=== PATIENT | male | born 1980 | race Caucasian/White ===

== ENCOUNTER 2021-05-19 12:26 | Outpatient (REF) | payer OTHER, SELFPAY | END 2021-05-19 12:27 | disposition home or self-care (01) | LOC: HO.HMGCLDS 12:26 | PROVIDERS: PCP Internal Medicine; Visit Provider Internal Medicine | DX: Z20.822 Contact with and (suspected) exposure to COVID-19 (principal) | CPT/HCPCS: C9803; U0003; U0005 ==

== ENCOUNTER 2021-09-25 09:13 | Outpatient (REF) | payer OTHER, SELFPAY | END 2021-09-25 09:14 | disposition home or self-care (01) | LOC: HO.HMGCLDS 09:13 | PROVIDERS: Visit Provider Internal Medicine | DX: Z20.822 Contact with and (suspected) exposure to COVID-19 (principal) | CPT/HCPCS: C9803; U0003; U0005 ==

== ENCOUNTER 2025-02-26 07:45 | Outpatient (REF) | payer OTHER, SELFPAY ==
--- NOTE | ~2025-02-26 | XR_ITS ---
EXAMINATION: XR HAND 3 OR MORE VIEWS LEFT HISTORY: M79.642 - Pain in left hand COMPARISON: There are no prior studies available for comparison. FINDINGS: Three views of the left hand are submitted. Osseous mineralization is normal. There is a minimally displaced fracture of the volar aspect of the base of the middle phalanx of the 5th finger. No additional fracture is seen. There is no dislocation. The joint spaces are preserved. There is soft tissue swelling at the fracture site. XR/XR hand LT min 3V IMPRESSION: Minimally displaced fracture of the volar aspect of the base of the middle phalanx of the 5th finger. Electronically signed by: Td Gonzalez MD 02/26/2025 12:12 PM EDT
--- OUTSIDE RECORDS SUMMARY | 2025-02-26 07:48 | XMS_ITS | Patient Health Record ---
Author Organization [facility] Address [address] [place] [address] Care Team Providers Care Compensation And Benefits Advisor Name Role Phone Raman Zaidi MD Primary Care Provider Sandy Velasquez Unavailable [phone] Reason For Referral No Information Medications Medication SIG (Take, Route, Frequency, Duration) Notes Start Date End Date Status Ranitidine HCl 150 MG 1 tablet at bedtim e Orally Once a day Active Cetirizine HCl 10 MG 1 tablet Orally Onc e a day Active Adderall XR 30 MG 1 capsule in the mor nakul Orally Once a day Not-Taking Adderall XR 15 MG (Schedule II Drug) T MARK 1 CAPSULE IN THE MORNING WITH THE 30MG XR. Oral for 30 Not-Taking Cephalexin 500 MG 1 tablet Orally Twic e a day for 7 days Active Concerta Active Atenolol 50 MG TAKE 1 TABLET BY JAGJIT TH EVERY DAY Oral for 30 Active Amphetamine-Dextroamphet ER 15 MG (Schedule II Drug) TAKE 1 CAPSULE BY MOUTH IN THE MORNING WITH THE 30MG XR. NO SUBSTITUTES Oral for 30 Not-Taking Cephalexin 500 MG TAKE ONE CAPSULE BY MOUTH 4 TIMES A DAY FOR 7 DAYS Oral for 7 Not-Taking Cephalexin 500 MG 1 tablet Orally Twic e a day for 5 days Not-Taking Rizatriptan Benzoate 10 MG 1 tablet as needed one time Orally Once a day Active Social History Tobacco Use: Social History Observation Description Date Details (start date - stop date) Never Smoker NA - NA Tobacco Use/Smoking Question Answer Notes Are you a: nonsmoker Additional Findings: Tobacco Non-User Current no n-smoker Alcohol Screen Question Answer Notes Did you have a drink contain ing alcohol in the past year? Yes How often did you have a dri nk containing alcohol in the past year? Monthly or less (1 point) Points 1 Interpretation Negative Tobacco use other than smoking: Question Answer Notes Are you an other tobacco user? No Plan Of Treatment Pending Test Test Name Order Date I&D ABSCESS- SIMPLE,SINGLE 018 Insurance Providers Payer Name Payer Address Payer Phone Subscriber Number Group Number Insured Name Patient Relationship to Insured Coverage Start Date Coverage End Date A[employer] [address] [place] [address] [id number] James Martinez Self - patient is the insured Medical (General) History Medical History History ICD Code Anxiety asthma Back,Hip,and Knee pain Broken bones Headaches High blood pressure keloids Reflux ( GERD) Warts Chicken pox Surgical History Surgery Date(Month/Year)
== END 2025-02-26 07:46 | disposition home or self-care (01) ==
LOC: HO.HOSX 07:45
DX: S62.627A Displaced fracture of middle phalanx of left little finger, initial encounter for closed fracture (principal)
CPT/HCPCS: 73130; 99202

== ENCOUNTER 2025-02-26 09:37 | Outpatient (AMB) | payer OTHER, SELFPAY ==
[2025-02-26 09:57] VITALS: BMI 23.7
--- NOTE | 2025-02-26 09:57 | MHC.OFFVIS ---
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 Soreness afterwards and bruised the following day. States pain improved however it increase after bumping it in a surface. Seen in Urgent care on 02/20/25 where xrays were taken and was given a brace. He was told he has a small finger fracture. Denies numbness or tingling. Allergies No Known Allergies Allergy (Verified 02/26/25 09:57) PFSH Surgical History (Updated 02/26/25 @ 09:59 by SHARAD Lozano) Hx of external ear surgery Social History (Updated 02/26/25 @ 10:00 by SHARAD Lozano) Patient Tobacco Use Status: Never used Tobacco Current occupational status: employed Current occupation: rt hand / teacher H/S Physical Exam Vital Signs: BMI result Body Mass Index 23.7 Office Procedures AMB Fracture Care Fracture Billing Code: Fracture Billing Code Assessment & Plan Assessment & Plan (1) Closed fracture of middle phalanx of left little finger: Code(s): S62.627A - Displaced fracture of middle phalanx of left little finger, initial encounter for closed fracture Category: Medical Plan History of Present Illness The patient is a 44-year-old male presenting with a fractured finger. He sustained the injury on the of the month while playing basketball. The exact mechanism of the fracture is unclear, but it likely involved some hyperextension during play. He reports persistent pain when using the finger or upon impact, though no pain when the hand is at rest. Initial self-care involved resting the hand and avoiding movement, which led to soreness and limited range of motion. Recent activities may have exacerbated the injury, and an x-ray revealed a nondisplaced avulsion fracture involving approximately 5-10% of the joint surface at the base of the middle phalanx of the left small finger. The patient experiences stiffness but does not report significant pain at the site of injury. Review of Systems - Musculoskeletal: Reports pain and stiffness in the left small finger. Denies pain elsewhere. - General: Denies any other symptoms or conditions discussed. Systems reviewed and are negative except as per HPI and below Physical Exam - Musculoskeletal- Examination of the left small finger shows limited range of motion. Absence of significant tenderness at the fracture site. There is some very minor swelling noted at the level of the fracture. No erythema, ecchymosis, open areas noted. Distal sensation intact, capillary refill brisk Results - Imaging: X-ray confirms an avulsion fracture of the base of the middle phalanx of the left small finger with minimal joint involvement. Procedure Plan The avulsion fracture of the left small finger's middle phalanx will be managed conservatively since the fracture is nondisplaced. The patient will discontinue using a splint and start gilbert taping to maintain stability while encouraging mobility. Light activities are permitted, but any lifting in the affected hand should be limited to objects under two to three pounds. A follow-up assessment will be conducted in two to three weeks to evaluate progress and determine the need for occupational therapy. Repeat x-rays will ensure the fracture's healing. The patient is advised against engaging in strenuous physical activity until further notice. Patient was informed and verbally consented to the use of an ambient scribe for clinic note documentation during this visit. Discussion Notes I informed the patient about the diagnosis of an avulsion fracture of the left small finger's middle phalanx, explaining its nondisplaced nature and minimal joint surface involvement. We discussed discontinuation of the splint in favor of gilbert taping to enhance mobility and prevent stiffness. I educated the patient on self-administering passive range of motion exercises to regain movement and addressed current limitations, emphasizing that no lifting over two to three pounds is advised to avoid exacerbating the fracture. The patient was advised against basketball or similar activities during recovery. We scheduled the follow-up for two to three weeks to evaluate progress and potential need for occupational therapy should restrictions persist. Follow-up x-rays will be conducted to verify appropriate healing. Patient Instructions - Use gilbert tape to stabilize the injured finger while encouraging movement. - Do light activities, but do not lift items heavier than two to three pounds with the injured hand. - Perform finger exercises to improve range of motion. - Avoid playing basketball or similar activities. - Return for a follow-up in two to three weeks for x-rays and progress evaluation. - Watch for increased pain or swelling and seek care if these occur. Orders: Orders XR hand LT min 3V Today M79.642 - Pain in left hand Coding Level of Care Code New Pt Level 3 (99324) Diagnoses Closed fracture of middle phalanx of left little finger S62.627A CPT Codes Fracture Care - Fracture Billing Code: Fracture Billing Code ([id number])
== END 2025-02-26 10:30 | disposition home or self-care (01) ==
LOC: HO.HOS 09:38
PROVIDERS: PCP Internal Medicine
DX: S62.627A Displaced fracture of middle phalanx of left little finger, initial encounter for closed fracture (principal)
CPT/HCPCS: 99203

== ENCOUNTER → 2025-02-26 09:45 | Outpatient (BNV) | payer OTHER, SELFPAY | PROVIDERS: Visit Provider Radiology Diagnostic Radiology | DX: S62.623A Displaced fracture of middle phalanx of left middle finger, initial encounter for closed fracture (principal) | CPT/HCPCS: 73130 ==

== ENCOUNTER → 2025-03-14 07:24 | Outpatient (BNV) | payer OTHER, SELFPAY | PROVIDERS: Emergency Provider Emergency Medicine; PCP Internal Medicine; Visit Provider Radiology Diagnostic Radiology | DX: S63.247A Subluxation of distal interphalangeal joint of left little finger, initial encounter (principal) | CPT/HCPCS: 73140 ==

== ENCOUNTER 2025-03-14 08:08 | Emergency (ER) | payer OTHER, SELFPAY ==
--- NOTE | ~2025-03-14 | XR_ITS ---
EXAMINATION: XR fifth digit, LEFT CLINICAL INFORMATION: INJUREY L 5FTH DIGIT COMPARISON: February 26, 2025. TECHNIQUE: PA and oblique and lateral views of the left fifth digit. PA view left hand. FINDINGS: There is overlapping of the phalanges of the second third and fourth digits on the lateral projection of the left fifth digit. No acute cortical disruption. No periosteal bone reaction. No callus formation. XR/XR finger LT min 2V IMPRESSION: No gross callus formation. No overt fracture. Electronically signed by: Koko Ayala MD 03/14/2025 08:35 AM EDT
[2025-03-14 08:10] VITALS: BP 140/89; PULSE 59; RESP 16; TEMP 36.6; O2SAT 100; BMI 23.7
--- NOTE | 2025-03-14 08:50 | PC.NURSE ---
pt registered to ED for out pt XR instead of presenting to main hospital - lwbs d/t scheduled follow up appt at ortho.
== END 2025-03-14 09:13 | disposition left against medical advice (07) ==
LOC: HO.ED 09:14
PROVIDERS: Emergency Provider Emergency Medicine; PCP Internal Medicine
DX: S69.92XA Unspecified injury of left wrist, hand and finger(s), initial encounter (principal); X58.XXXA Exposure to other specified factors, initial encounter; Y93.9 Activity, unspecified; Y92.9 Unspecified place or not applicable; Y99.9 Unspecified external cause status; Z53.21 Procedure and treatment not carried out due to patient leaving prior to being seen by health care provider
CPT/HCPCS: 73140; 99212; 99281

== ENCOUNTER 2025-03-14 08:27 | Outpatient (AMB) | payer OTHER, SELFPAY ==
--- NOTE | 2025-03-14 08:29 | MHC.OFFVIS ---
Intake Visit Reasons: OV- L 5th finger prox phalanx fx DOI 02/08/25 Intake Note: James is a 44 year old right hand dominant male who presents today for a follow up visit for his closed fracture of middle phalanx of left little finger, DOI: 02/08/25. Patient reports that he is feeling a little better. He does find it sore when he is making a fist. Allergies No Known Allergies Allergy (Verified 03/14/25 08:29) HPI HPI OV- L 5th finger prox phalanx fx DOI 02/08/25: Details: James is a 44 year old right hand dominant male who presents today for a follow up visit for his closed fracture of middle phalanx of left little finger, DOI: 02/08/25. Patient reports that he is feeling a little better. He does find it sore when he is making a fist. PFSH Surgical History (Updated 02/26/25 @ 09:59 by SHARAD Lozano) Hx of external ear surgery Social History Patient Tobacco Use Status: Never used Tobacco Advance Directives: No Advance Directives Information Provided: No Current occupational status: employed Current occupation: rt hand / teacher H/S Review of Systems Const All systems reviewed & are unremarkable except as noted in HPI and below Physical Exam Extrem Other: Patient is alert, oriented, and in no acute distress. Neuro: Normal sensation of the tips of all digits of the left hand at this time Vascular: Cap refill brisk Pain: No tenderness to palpation about the left small finger, particularly at the level of the fracture No pain with range of motion of the left hand ROM: Patient is able to make a closed fist and extend all digits of the left hand fully, some difficulty with full flexion of the left small finger Skin: No lacerations or abrasions. General: Some edema noted at the PIP joint of the left small finger No ecchymosis, erythema, or evidence of infection. Psych: Appears grossly normal Affect normal Attitude cooperative Results Reviewed Results Reviewed: X-rays obtained in the office today and independently reviewed by me, Bryan Vivas PA-C, demonstrate healing fracture of middle phalanx of left small finger. Assessment & Plan Assessment & Plan (1) Closed fracture of middle phalanx of left little finger: Code(s): S62.627A - Displaced fracture of middle phalanx of left little finger, initial encounter for closed fracture Category: Medical Plan Plan The avulsion fracture of the left small finger's middle phalanx will be managed conservatively since the fracture is nondisplaced. The patient will discontinue using a splint and start gilbert taping to maintain stability while encouraging mobility. Light activities are permitted, but any lifting in the affected hand should be limited to objects under two to three pounds. A follow-up assessment will be conducted in two to three weeks to evaluate progress and determine the need for occupational therapy. Repeat x-rays will ensure the fracture's healing. The patient is advised against engaging in strenuous physical activity until further notice. Discussion Notes I informed the patient about the diagnosis of an avulsion fracture of the left small finger's middle phalanx, explaining its nondisplaced nature and minimal joint surface involvement. We discussed discontinuation of the splint in favor of gilbert taping to enhance mobility and prevent stiffness. I educated the patient on self-administering passive range of motion exercises to regain movement and addressed current limitations, emphasizing that no lifting over two to three pounds is advised to avoid exacerbating the fracture. The patient was advised against basketball or similar activities during recovery. We scheduled the follow-up for two to three weeks to evaluate progress and potential need for occupational therapy should restrictions persist. Follow-up x-rays will be conducted to verify appropriate healing. Patient Instructions - Use gilbert tape to stabilize the injured finger while encouraging movement. - Do light activities, but do not lift items heavier than two to three pounds with the injured hand. - Perform finger exercises to improve range of motion. - Avoid playing basketball or similar activities. - Return for a follow-up in two to three weeks for x-rays and progress evaluation. - Watch for increased pain or swelling and seek care if these occur. Orders: Orders XR hand LT min 3V Today M79.642 - Pain in left hand OT Evaluation and Treatment Today S62.623S - Displaced fracture of middle phalanx of left little finger, initial encounter for closed fracture Coding Level of Care Code Global (91362) Diagnoses Closed fracture of middle phalanx of left little finger S62.623K
--- OUTSIDE RECORDS SUMMARY | 2025-03-14 08:49 | XMS_ITS | Patient Health Record ---
Author Organization [facility] Address [address] [place] [address] Care Team Providers Care Automatic Pilot Mechanic Name Role Phone Raman Zaidi MD Primary Care Provider Sandy Velasquez Unavailable [phone] Reason For Referral No Information Medications Medication [...] Date Coverage End Date [employer] [address] [place] [address] [id number] James Martinez Self - patient is the insured Medical (General) History Medical History History ICD Code Anxiety asthma Back,Hip,and Knee pain Broken bones Headaches High blood pressure keloids Reflux ( GERD) Warts Chicken pox Surgical History Surgery Date(Month/Year)
== END 2025-03-14 09:05 | disposition home or self-care (01) ==
LOC: HO.HOS 08:27
PROVIDERS: PCP Internal Medicine
DX: S62.627A Displaced fracture of middle phalanx of left little finger, initial encounter for closed fracture (principal)
CPT/HCPCS: 99213

== ENCOUNTER 2025-04-18 07:57 | Outpatient (REF) | payer OTHER, SELFPAY ==
--- NOTE | ~2025-04-18 | XR_ITS ---
EXAMINATION: XR HAND 3 OR MORE VIEWS LEFT HISTORY: M79.642 - Pain in left hand COMPARISON: Comparison is made with prior examinations dated 03/14/2025 and 02/26/2025. FINDINGS: Three views of the left hand are submitted. Osseous mineralization is normal. Again seen is a nondisplaced fracture of the volar aspect of the base of the middle phalanx, best seen on the oblique view. The fracture line remains visible. The joint spaces are preserved. The soft tissues are unremarkable. XR/XR hand LT min 3V IMPRESSION: Nondisplaced fracture of the volar aspect of the base of the middle phalanx. Electronically signed by: Td Gonzalez MD 04/18/2025 08:39 AM EDT
== END 2025-04-18 07:58 | disposition home or self-care (01) ==
LOC: HO.HOSX 07:57
PROVIDERS: PCP Internal Medicine
DX: S62.627D Displaced fracture of middle phalanx of left little finger, subsequent encounter for fracture with routine healing (principal); M79.642 Pain in left hand; X58.XXXD Exposure to other specified factors, subsequent encounter
CPT/HCPCS: 73130; 99212

== ENCOUNTER 2025-04-18 07:57 | Outpatient (AMB) | payer OTHER, SELFPAY ==
--- OUTSIDE RECORDS SUMMARY | 2025-04-18 08:02 | XMS_ITS | Patient Health Record ---
Author Organization [facility] Address [address] [place] [address] Care Team Providers Care Waste Elimination Name Role Phone Raman Zaidi MD Primary Care Provider Sandy Velasquez Unavailable [phone] Reason For Referral No Information Medications Medication [...] IN THE MORNING WITH THE 30MG XR. Oral; Duration: 30 Not-Taking Cephalexin 500 MG 1 tablet Orally Twic e a day; Duration: 7 days Active Concerta Active Atenolol 50 MG TAKE 1 TABLET BY JAGJIT TH EVERY DAY Oral; Duration: 30 Active Amphetamine-Dextroamphet ER 15 MG (Schedule II Drug) TAKE 1 CAPSULE BY MOUTH IN THE MORNING WITH THE 30MG XR. NO SUBSTITUTES Oral; Duration: 30 Not-Taking Cephalexin 500 MG TAKE ONE CAPSULE BY MOUTH 4 TIMES A DAY FOR 7 DAYS Oral; Duration: 7 Not-Hi ing Cephalexin 500 MG 1 tablet Orally Twic e a day; Duration: 5 days Not-Taking Rizatriptan Benzoate 10 MG [...] Treatment Pending Test Test Name Order Date [address]4543 I&D ABSCESS- SIMPLE,SINGLE 018 Insurance Providers Payer Name Payer Address Payer Phone Subscriber Number Group Number Insured Name Patient Relationship to Insured Coverage Start Date Coverage End Date A[employer] [address] [place] [address] [id number] James Martinez Self - patient is the insured Medical (General) History Medical History History ICD Code Anxiety asthma Back,Hip,and Knee pain Broken bones Headaches High blood pressure keloids Reflux ( GERD) Warts Chicken pox Surgical History Surgery Date(Month/Year)
--- NOTE | 2025-04-18 08:08 | MHC.OFFVIS ---
Vital Signs 04/18/25 08:09 Height 5 ft 11 in Weight 170 lb BMI 23.7 Intake Visit Reasons: OV - Left 5th Middle phalanx fx DOI 02/08/25 Intake Note: James is a 44 year old right hand dominant male who presents today for a follow up visit s/p Left Small finger, middle phalanx fracture 02/08/25. At his last visit he was instructed to use gilbert tape and no lifting greater than 3 lbs. Patient reports he is doing well, with no further concerns at this time. Denies numbness, tingling and finger locking. 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 The fracture was initially treated with immobilization, and the patient has been undergoing rehabilitation therapy to improve range of motion and reduce swelling. The patient reports that the swelling has decreased, and there is some improvement in movement, although stiffness persists, particularly during extension. The patient has been intermittently using gilbert taping during high-risk activities to prevent further injury. He has been advised to continue with rest, ice, and elevation to manage residual swelling. The patient is not experiencing significant pain during passive extension and can fully flex the finger. Review of Systems - Musculoskeletal: Reports decreased swelling and improved movement in the finger, denies significant pain during passive extension Systems reviewed and are negative except as per HPI and below Physical Exam - Musculoskeletal: Reduced swelling in the finger, improved range of motion, able to make a fist almost completely, extension limited by stiffness - Musculoskeletal: No tenderness on palpation, full flexion achieved, passive extension does not cause significant pain Results - Imaging: X-rays show excellent healing of the finger fracture with no visible fracture line Procedure Plan The patient is advised to continue with rehabilitation therapy to enhance range of motion and reduce stiffness in the finger. Gilbert taping should be used during high-risk activities to prevent reinjury. The patient should continue with rest, ice, and elevation to manage any remaining swelling. Patient may follow-up as needed with any acute concerns Patient was informed and verbally consented to the use of an ambient scribe for clinic note documentation during this visit. Discussion Notes I discussed with the patient that the x-rays show excellent healing of the finger fracture, with no visible fracture line. We talked about the importance of continuing rehabilitation therapy and using gilbert taping during high-risk activities. I advised him to continue with rest, ice, and elevation to manage swelling. We discussed the option of scheduling a follow-up appointment in four to six weeks, which he can cancel if he feels well. Patient Instructions - Continue rehabilitation therapy to improve finger movement. - Use gilbert taping during high-risk activities to prevent reinjury. - Rest, ice, and elevate the finger to reduce swelling. - Consider scheduling a follow-up appointment in four to six weeks, and cancel if feeling well. Orders: Orders XR hand LT min 3V Today M79.642 - Pain in left hand Coding Level of Care Code Global (61051) Diagnoses Closed fracture of middle phalanx of left little finger S62.627A
[2025-04-18 08:09] VITALS: BMI 23.7
== END 2025-04-18 08:47 | disposition home or self-care (01) ==
LOC: HO.HOS 07:58
PROVIDERS: PCP Internal Medicine
DX: S62.627A Displaced fracture of middle phalanx of left little finger, initial encounter for closed fracture (principal)
CPT/HCPCS: 99213

== ENCOUNTER → 2025-04-18 08:23 | Outpatient (BNV) | payer OTHER, SELFPAY | PROVIDERS: PCP Internal Medicine; Visit Provider Radiology Diagnostic Radiology | DX: S62.65 Nondisplaced fracture of middle phalanx of finger (principal) | CPT/HCPCS: 73130 ==

== ENCOUNTER 2025-06-04 15:18 | Outpatient (RCR) | payer OTHER, SELFPAY ==
--- NOTE | 2025-03-20 15:06 | MHC.OT.EP ---
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 He believes he only jammed his digit and after a week when sx's did not improve he went to Urgent Care. He was diagnosed w/ a dislocation and urgent care gave him a splint; he then had a follow up w/ Bryan Vivas who d/charged the splint and had him gilbert tape his SF to his RF. Pt presents today w/ mild pain and decreased ROM in his DIP J. Pt has been gilbert taping it, he reports mild pain, and denies numbness and tinging. Pt presents today w/ minimal decreased ROM and strength. 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 Thank you once again for your referral.
--- NOTE | 2025-08-03 10:40 | MHC.OT.DC ---
[facility] Office [address] [facility] [facility] [phone] F: [phone] F: [phone] Occupational Therapy Discharge Note Patient Name: James [place] Shanijoana Provider: Bryan Vivas Diagnosis: L PIP J dislocation / avulsion fx Date of Surgery: Date of Evaluation: 03/20/25 Date of Discharge: Treatments to Date: 12 Cancellations to Date: No Shows to Date: Discharge Status: Improved Function Independent with HEP Discharge Summary: Pt was last seen 06/21. He was making great progress at the time and we discussed waiting to see if digit improved over tiem and w/ splinting schedule. Pt reported he would return if necessary w/in a mos. Pt was a pleasure to work w/ thank you for including me in his care! Electronically Signed By: Luna Sainz OTR/L Reviewed/agree with student documentation: Therapist: Please Sign and return to therapist, thank you for your referral.
== END 2025-08-03 10:40 | disposition home or self-care (01) ==
LOC: HO.OT 15:18
PROVIDERS: PCP Internal Medicine
DX: S62.627D Displaced fracture of middle phalanx of left little finger, subsequent encounter for fracture with routine healing (principal)
CPT/HCPCS: 29130; 97110; 97140; 97165; 97535; 97760